=== PATIENT | male | born 1935 | race Caucasian/White ===

== ENCOUNTER 2017-09-04 07:57 | Emergency (ER) | payer MEDICARE, OTHER ==
[2017-09-04] MEDS ORDERED: Sodium Chloride 0.9% 10 ML Syringe FLUSH PRN (08:08)
--- NOTE | 2017-09-04 08:34 | EDM.PDOC ---
ED HPI GENERAL MEDICAL PROBLEM - General Chief Complaint: Chest Pain Stated Complaint: CHEST PAIN/L ARM PAIN Time Seen by Provider: 09/04/17 08:03 Source of Information: Reports: Patient History Limitations: Reports: No Limitations - History of Present Illness INITIAL COMMENTS - FREE TEXT/NARRATIVE: The patient presents with left arm and leg tingling and chest congestion. This started this morning. He went to work at around 5am and he 1st noticed some tingling in his left arm and then left leg. Then he developed some congestion in his chest. He has no numbness or weakness. He has no shortness of breath. He has no cough. He has no headache, abdominal pain, nausea or vomiting. The chest congestion is gone but he still has some tingling in his left arm and leg , but is much better. 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 Denies: Cough, Fever/Chills, Headaches, Nausea/Vomiting, Shortness of Breath - Related Data Allergies Allergy/AdvReac Type Severity Reaction Status Date / Time No Known Allergies Allergy Verified 09/04/17 08:01 Home Meds: Home Meds Ascorbic Acid [Vitamin C] 1,000 mg PO DAILY 03/25/14 [History] Aspirin [Halfprin] 81 mg PO DAILY 03/25/14 [History] Carvedilol 6.25 mg PO DAILY 03/25/14 [History] Diclofenac Sodium [Voltaren] 75 mg PO BIDM PRN 03/25/14 [History] Lactobacillus Acidophilus [Probiotic] 1 cap PO DAILY 03/25/14 [History] Omeprazole 40 mg PO DAILY 03/25/14 [History] Oxybutynin [Oxybutynin ER] 15 mg PO DAILY 03/25/14 [History] Simvastatin [Zocor] 20 mg PO BEDTIME 03/25/14 [History] Terazosin [Hytrin] 2 mg PO DAILY 03/25/14 [History] Past Medical History Cardiovascular History: Reports: AR, Pacemaker Respiratory History: Reports: PE - Past Surgical History Cardiovascular Surgical History: Reports: Coronary Artery Bypass, Pacer Social & Family History - Tobacco Use Smoking Status *Q: Never Smoker - Caffeine Use Caffeine Use: Reports: None - Recreational Drug Use Recreational Drug Use: No ED ROS GENERAL - Review of Systems Review Of Systems: See Below Constitutional: Reports: No Symptoms HEENT: Reports: No Symptoms Respiratory: Reports: No Symptoms Cardiovascular: Reports: Chest Pain (Congestion) Endocrine: Reports: No Symptoms GI/Abdominal: Reports: No Symptoms : Reports: No Symptoms Musculoskeletal: Reports: No Symptoms Skin: Reports: No Symptoms Neurological: Reports: Tingling (Left arm and leg). Denies: Numbness, Weakness ED EXAM, GENERAL - Physical Exam Exam: See Below Exam Limited By: No Limitations General Appearance: Alert, No Apparent Distress Ears: Normal External Exam Nose: Normal Inspection Head: Atraumatic, Normocephalic Neck: Normal Inspection Respiratory/Chest: No Respiratory Distress, Lungs Clear, Normal Breath Sounds Cardiovascular: Regular Rate, Rhythm, No Edema, No Murmur GI/Abdominal: Soft, Non-Tender, No Organomegaly, No Mass Back Exam: Normal Inspection Extremities: Normal Inspection Neurological: Alert, Oriented, No Motor/Sensory Deficits EKG INTERPRETATION EKG Date: 09/04/17 Time: 08:02 Rhythm: Other (atrial paced rhythm) Rate (Beats/Min): 68 [place]: Normal P-Wave: Present QRS: Normal ST-T: Normal QT: Normal DC/PQ Interval: 1st degree HB Course - Vital Signs Last Recorded V/S: Last Vital Signs Temp 98.1 F 09/04/17 08:01 Pulse 63 09/04/17 08:01 Resp 12 09/04/17 08:01 BP 157/102 H 09/04/17 08:01 Pulse Ox 97 09/04/17 08:01 - Orders/Labs/Meds Orders: Active Orders 24 hr Category Date Time Status Cardiac Monitoring [RC] . DIRECTED Care 09/04/17 08:08 Active EKG Documentation Completion [RC] STAT Care 09/04/17 08:09 Active Peripheral IV Care [RC] . DIRECTED Care 09/04/17 08:09 Active Sodium Chloride 0.9% [Saline Flush] Med 09/04/17 08:08 Active 10 ml FLUSH ASDIRECTED PRN Peripheral IV Insertion Adult [OM.PC] Stat Oth 09/04/17 08:08 Ordered Medication Orders Sodium Chloride (Saline Flush) 10 ml FLUSH ASDIRECTED PRN PRN Reason: Keep Vein Open Last Admin: 09/04/17 08:26 Dose: 10 ml Labs: Laboratory Tests 09/04/17 09/04/17 09/04/17 Range/Units 08:05 08:05 08:05 WBC 3.80 L (4.23-9.07) K/mm3 RBC 4.52 L (4.63-6.08) M/mm3 Hgb 14.3 (13.7-17.5) gm/L Hct 41.0 (40.1-51.0) % MCV 90.7 (79.0-92.2) fl MCH 31.6 (25.7-32.2) pg MCHC 34.9 (32.2-35.5) g/dl RDW Std Deviation 40.5 (35.1-43.9) fL Plt Count 114 L (163-337) K/mm3 MPV 9.5 (9.4-12.3) fl Neut % (Auto) 64.5 (34.0-67.9) % Lymph % (Auto) 19.7 L (21.8-53.1) % Stanley % (Auto) 10.5 (5.3-12.2) % Eos % (Auto) 4.7 (0.8-7.0) Baso % (Auto) 0.3 (0.1-1.2) % Neut # (Auto) 2.45 (1.78-5.38) K/mm3 Lymph # (Auto) 0.75 L (1.32-3.57) K/mm3 Stanley # (Auto) 0.40 (0.30-0.82) K/mm3 Eos # (Auto) 0.18 (0.04-0.54) K/mm3 Baso # (Auto) 0.01 (0.01-0.08) K/mm3 PT 11.2 (9.5-12.1) SECONDS INR 1.03 APTT 28 (24-31) SECONDS Sodium 139 (136-145) mEq/L Potassium 4.0 (3.5-5.1) mEq/L Chloride 105 (98-107) mEq/L Carbon Dioxide 26 (21-32) mEq/L Anion Gap 12.0 (5-15) BUN 20 H (7-18) mg/dL Creatinine 1.1 (0.7-1.3) mg/dL Est Cr Clr Drug Dosing 47.57 mL/min Estimated GFR (MDRD) > 60 (>60) mL/min BUN/Creatinine Ratio 18.2 H (14-18) Glucose 115 (83-115) mg/dL Calcium 9.2 (8.5-10.1) mg/dL Total Bilirubin 0.8 (0.2-1.0) mg/dL AST 19 (15-37) U/L ALT 19 (16-63) U/L Alkaline Phosphatase 78 (46-116) U/L Troponin I < 0.017 (0.00-0.056) ng/mL Total Protein 7.0 (6.4-8.2) g/dl Albumin 3.7 (3.4-5.0) g/dl Globulin 3.3 gm/dL Albumin/Globulin Ratio 1.1 (1-2) Meds: Medications Generic Name Dose Route Start Last Admin Trade Name Freq PRN Reason Stop Dose Admin Sodium Chloride 10 ml 09/04/17 08:08 09/04/17 08:26 Saline Flush FLUSH 10 ml ASDIRECTED PRN Administration Keep Vein Open - Re-Assessments/Exams Free Text/Narrative Re-Assessment/Exam: 09/04/17 08:34 A stroke alert was called. I ordered an IV saline lock, EKG, CT of his head and labs. 09/04/17 09:53 His EKG shows a paced rhythm. His CT shows nothing acute. His CBC and CMP look good. His troponin is negative. He feels better. I feel he had a TIA. I have scheduled a US of his carotids for . He is seeing the progress clerk that day and he has an echo scheduled that day also. I offered to admit him to the hospital but he wanted to go home. Departure - Departure Time of Disposition: 09:55 Disposition: Home, Self-Care 01 Condition: Good Clinical Impression: TIA (transient ischemic attack) Qualifiers: Transient cerebral ischemia type: unspecified Qualified Code(s): G45.9 - Transient cerebral ischemic attack, unspecified Referrals: Lindsey Monique SECTION HAND HELPER [Primary Care Provider] - 1 Week Forms: ED Department Discharge Additional Instructions: Please come to [place] at 9am on . I have scheduled an ultrasound of your carotid arteries in your neck before the echo of your heart. Follow up with Lindsey Monique within a week. Continue taking the aspirin daily. Please return if you are worse. - My Orders Last 24 Hours: My Active Orders 09/04/17 08:08 Cardiac Monitoring [RC] . DIRECTED Sodium Chloride 0.9% [Saline Flush] 10 ml FLUSH ASDIRECTED PRN Peripheral IV Insertion Adult [OM.PC] Stat 09/04/17 08:09 EKG Documentation Completion [RC] STAT Peripheral IV Care [RC] . DIRECTED - Assessment/Plan Last 24 Hours: My Active Orders 09/04/17 08:08 Cardiac Monitoring [RC] . DIRECTED Sodium Chloride 0.9% [Saline Flush] 10 ml FLUSH ASDIRECTED PRN Peripheral IV Insertion Adult [OM.PC] Stat 09/04/17 08:09 EKG Documentation Completion [RC] STAT Peripheral IV Care [RC] . DIRECTED
--- NOTE | 2017-09-04 08:39 | CT ---
Head CT Technique: Multiple axial sections through the brain were obtained. Intravenous contrast was not utilized. Comparison: No previous intracranial imaging. Findings: Ventricles along with basal cisterns and sulci over convexities are mildly prominent. Very minimal diminished density is noted within portions of the periventricular white matter compatible with small vessel ischemic demyelination change. Symmetric low density findings are seen within the posterior basal ganglia on both sides which most likely represent incidental prominent perivascular spaces. 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 Atherosclerotic change is noted within the carotid siphon. No evidence of intracranial hemorrhage. No midline shift or mass effect is seen. Bone window settings were reviewed which shows no acute calvarial abnormality. Visualized sinuses shows mild mucosal thickening within the right ethmoid sinus. Impression: 1. Mild senescent change. 2. Minimal sinus findings which are felt to be incidental. 3. No acute intracranial is abnormality is identified. Diagnostic code #2
[2017-09-04 10:13] VITALS: BP 160/105
== END 2017-09-04 10:10 | disposition home or self-care (01) ==
LOC: JD.ED 07:57
DX: G45.9 Transient cerebral ischemic attack, unspecified (principal); I25.2 Old myocardial infarction; I25.810 Atherosclerosis of coronary artery bypass graft(s) without angina pectoris; Z79.82 Long term (current) use of aspirin; Z95.0 Presence of cardiac pacemaker; Z79.899 Other long term (current) drug therapy; Z95.1 Presence of aortocoronary bypass graft
CPT/HCPCS: 36415; 70450; 80053; 84484; 85025; 85610; 85730; 93005; 99285; J7050

== ENCOUNTER 2020-11-05 08:59 | Emergency (ER) | payer MEDICARE, OTHER ==
[2020-11-05 09:07] VITALS: BP 167/93; PULSE 66
[2020-11-05] MEDS ORDERED: Sodium Chloride 0.9% 10 ML Syringe FLUSH PRN (09:21)
[2020-11-05] MEDS ORDERED: Aspirin 81 MG Tab.Chew PO ONE (09:21)
--- NOTE | 2020-11-05 10:01 | CR ---
Chest: Portable view of the chest was obtained. Comparison: No prior chest imaging, prior chest CT study of 05/29/24. Tortuous thoracic aorta is seen. Heart size is felt to be mildly enlarged. Bichamber pacemaker is noted. Sternotomy is noted for prior CABG. Lungs are clear with no acute parenchymal change. No definite acute osseous finding is seen. Impression: 1. Findings as described above which are felt to be old. 2. Nothing acute is seen. Diagnostic code #2
--- NOTE | 2020-11-05 11:46 | EDM.PDOC ---
ED HPI GENERAL MEDICAL PROBLEM - General Chief Complaint: Chest Pain Stated Complaint: CHEST PAIN Time Seen by Provider: 11/05/20 09:05 Source of Information: Reports: Patient, Family History Limitations: Reports: No Limitations - History of Present Illness INITIAL COMMENTS - FREE TEXT/NARRATIVE: The patient presents with left sided chest pain. The pain goes down his left arm. He said he noticed this pain yesterday. When he lifts something he feels more pain. Walking does not make it worse. He has no shortness of breath. He has no fever, chills, cough, abdominal pain, nausea or vomiting. He does have a history of heart disease. Onset: Gradual Duration: Day(s): (yesterday) Location: Reports: Chest Quality: Reports: Sharp Severity: Mild Improves with: Reports: None Worsens with: Reports: None Associated Symptoms: Reports: Chest Pain. Denies: Cough, Fever/Chills, Headaches, Nausea/Vomiting, Shortness of Breath Chest Pain Score (Numeric/FACES): 5 - Related Data Allergies Allergy/AdvReac Type Severity Reaction Status Date / Time No Known Allergies Allergy Verified 11/23/18 02:44 Home Meds: Home Meds Ascorbic Acid [Vitamin C] 1,000 mg PO DAILY 03/25/14 [History] Aspirin [Halfprin] 81 mg PO DAILY 03/25/14 [History] Lactobacillus Acidophilus [Probiotic] 1 cap PO DAILY 03/25/14 [History] Omeprazole 20 mg PO DAILY 03/25/14 [History] Simvastatin [Zocor] 20 mg PO BEDTIME 03/25/14 [History] Terazosin [Hytrin] 2 mg PO DAILY 03/25/14 [History] carvediloL [Carvedilol] 6.25 mg PO DAILY 03/25/14 [History] Past Medical History HEENT History: Reports: Impaired Vision Cardiovascular History: Reports: High Cholesterol, NH, Pacemaker Respiratory History: Reports: PE Gastrointestinal History: Reports: GERD - Infectious Disease History Infectious Disease History: Reports: Chicken Pox, Measles, Mumps - Past Surgical History HEENT Surgical History: Reports: Oral Surgery Cardiovascular Surgical History: Reports: Coronary Artery Bypass, Pacer Social & Family History - Family History Family Medical History: No Pertinent Family History - Tobacco Use Tobacco Use Status *Q: Former Tobacco User Used Tobacco, but Quit: Yes Month/Year Tobacco Last Used: 40 yrs - Caffeine Use Caffeine Use: Reports: Coffee ED ROS GENERAL - Review of Systems Review Of Systems: See Below Constitutional: Reports: No Symptoms HEENT: Reports: No Symptoms Respiratory: Reports: No Symptoms Cardiovascular: Reports: Chest Pain Endocrine: Reports: No Symptoms GI/Abdominal: Reports: No Symptoms : Reports: No Symptoms Musculoskeletal: Reports: No Symptoms ED EXAM, GENERAL - Physical Exam Exam: See Below Exam Limited By: No Limitations General Appearance: Alert, No Apparent Distress Ears: Normal External Exam Nose: Normal Inspection Head: Atraumatic, Normocephalic Neck: Normal Inspection Respiratory/Chest: No Respiratory Distress, Lungs Clear, Normal Breath Sounds Cardiovascular: Regular Rate, Rhythm, No Edema, No Murmur GI/Abdominal: Soft, Non-Tender, No Organomegaly, No Mass Back Exam: Normal Inspection Extremities: Normal Inspection #1 Interpretation EKG Date: 11/05/20 Time: 09:05 Rhythm: Other (atrial paced rhtym) Rate (Beats/Min): 64 [place]: LAD-Left [place] Deviation P-Wave: Present QRS: Normal ST-T: Normal QT: Normal Course - Vital Signs Last Recorded V/S: Last Vital Signs Temp 97.8 F 11/05/20 09:05 Pulse 66 11/05/20 09:05 Resp 18 11/05/20 09:05 BP 167/93 H 11/05/20 09:05 Pulse Ox 95 11/05/20 09:05 - Orders/Labs/Meds Orders: Active Orders 24 hr Category Date Time Status Cardiac Monitoring [RC] . DIRECTED Care 11/05/20 09:22 Active EKG Documentation Completion [RC] STAT Care 11/05/20 09:22 Active Peripheral IV Care [RC] . DIRECTED Care 11/05/20 09:22 Active Sodium Chloride 0.9% [Saline Flush] Med 11/05/20 09:21 Active 10 ml FLUSH ASDIRECTED PRN Peripheral IV Insertion Adult [OM.PC] Stat Oth 11/05/20 09:21 Ordered Medication Orders Sodium Chloride (Sodium Chloride 0.9% 10 Ml Syringe) 10 ml FLUSH ASDIRECTED PRN PRN Reason: Keep Vein Open Labs: Laboratory Tests 11/05/20 11/05/20 Range/Units 09:32 09:32 WBC 3.74 L (4.23-9.07) K/mm3 RBC 4.47 L (4.63-6.08) M/mm3 Hgb 13.5 L (13.7-17.5) gm/dl Hct 40.3 (40.1-51.0) % MCV 90.2 (79.0-92.2) fl MCH 30.2 (25.7-32.2) pg MCHC 33.5 (32.2-35.5) g/dl RDW Std Deviation 44.4 H (35.1-43.9) fL Plt Count 120 L (163-337) K/mm3 MPV 9.0 L (9.4-12.3) fl Neut % (Auto) 67.6 (34.0-67.9) % Lymph % (Auto) 19.3 L (21.8-53.1) % Rogers % (Auto) 8.3 (5.3-12.2) % Eos % (Auto) 4.5 (0.8-7.0) Baso % (Auto) 0.3 (0.1-1.2) % Neut # (Auto) 2.53 (1.78-5.38) K/mm3 Lymph # (Auto) 0.72 L (1.32-3.57) K/mm3 Rogers # (Auto) 0.31 (0.30-0.82) K/mm3 Eos # (Auto) 0.17 (0.04-0.54) K/mm3 Baso # (Auto) 0.01 (0.01-0.08) K/mm3 Sodium 143 (136-145) mEq/L Potassium 4.5 (3.5-5.1) mEq/L Chloride 108 H (98-107) mEq/L Carbon Dioxide 26 (21-32) mEq/L Anion Gap 13.5 (5-15) BUN 26 H (7-18) mg/dL Creatinine 1.1 (0.7-1.3) mg/dL Est Cr Clr Drug Dosing 48.20 mL/min Estimated GFR (MDRD) > 60 (>60) mL/min BUN/Creatinine Ratio 23.6 H (14-18) Glucose 155 H (70-99) mg/dL Calcium 8.9 (8.5-10.1) mg/dL Total Bilirubin 0.8 (0.2-1.0) mg/dL AST 18 (15-37) U/L ALT 29 (16-63) U/L Alkaline Phosphatase 85 (46-116) U/L Troponin I < 0.017 (0.00-0.056) ng/mL Total Protein 7.4 (6.4-8.2) g/dl Albumin 3.7 (3.4-5.0) g/dl Globulin 3.7 gm/dL Albumin/Globulin Ratio 1.0 (1-2) Meds: Medications Generic Name Dose Route Start Last Admin Trade Name Freq PRN Reason Stop Dose Admin Sodium Chloride 10 ml 11/05/20 09:21 Sodium Chloride 0.9% 10 Ml Syringe FLUSH ASDIRECTED PRN Keep Vein Open Discontinued Medications Generic Name Dose Route Start Last Admin Trade Name Freq PRN Reason Stop Dose Admin Aspirin 324 mg 11/05/20 09:21 11/05/20 09:46 Aspirin 81 Mg Tab.Chew PO 11/05/20 09:22 324 mg ONETIME ONE Administration - Re-Assessments/Exams Free Text/Narrative Re-Assessment/Exam: 11/05/20 11:45 I ordered an IV saline lock, EKG, CXR, labs and aspirin. His EKG shows an atrial paced rhythm. His CXR looks good. His WBC is a little low at 3.74. His RBCs are low at 4.47. His glucose is 135. His troponin is negative. It appears there is no NH. I will discharge him home. Departure - Departure Time of Disposition: 11:50 Disposition: Home, Self-Care 01 Condition: Good Clinical Impression: Atypical chest pain Referrals: Lindsey Monique HOUSE CARPENTER [Primary Care Provider] - 1 Week Additional Instructions: Take your medications as prescribed. Follow up with Lindsey within a week. Please return if you are worse. Sepsis Event Note (ED) - Evaluation Sepsis Screening Result: No Definite Risk - Focused Exam Vital Signs: Vital Signs Temp Pulse Resp BP Pulse Ox 11/05/20 09:05 97.8 F 66 18 167/93 H 95 - My Orders Last 24 Hours: My Active Orders 11/05/20 09:21 Sodium Chloride 0.9% [Saline Flush] 10 ml FLUSH ASDIRECTED PRN Peripheral IV Insertion Adult [OM.PC] Stat 11/05/20 09:22 Cardiac Monitoring [RC] . DIRECTED EKG Documentation Completion [RC] STAT Peripheral IV Care [RC] . DIRECTED - Assessment/Plan Last 24 Hours: My Active Orders 11/05/20 09:21 Sodium Chloride 0.9% [Saline Flush] 10 ml FLUSH ASDIRECTED PRN Peripheral IV Insertion Adult [OM.PC] Stat 11/05/20 09:22 Cardiac Monitoring [RC] . DIRECTED EKG Documentation Completion [RC] STAT Peripheral IV Care [RC] . DIRECTED
== END 2020-11-05 11:56 | disposition home or self-care (01) ==
LOC: JD.ED 08:59
DX: R07.89 Other chest pain (principal); E78.00 Pure hypercholesterolemia, unspecified; I25.2 Old myocardial infarction; K21.9 Gastro-esophageal reflux disease without esophagitis; Z95.0 Presence of cardiac pacemaker; Z79.82 Long term (current) use of aspirin; Z79.899 Other long term (current) drug therapy; Z95.1 Presence of aortocoronary bypass graft; Z87.891 Personal history of nicotine dependence
CPT/HCPCS: 36415; 71045; 80053; 84484; 85025; 93005; 99285; A9270; 93010; 99284

== ENCOUNTER 2020-11-09 02:17 | Emergency (ER) | payer MEDICARE, OTHER ==
[2020-11-09 02:28] VITALS: BP 168/105
--- NOTE | 2020-11-09 03:01 | EDM.PDOC ---
ED HPI GENERAL MEDICAL PROBLEM - General Chief Complaint: Chest Pain Stated Complaint: CHEST PAIN Time Seen by Provider: 11/09/20 02:31 Source of Information: Reports: Patient, Family (Son), Old Records (ED visit 11/05/2020) History Limitations: Reports: No Limitations - History of Present Illness INITIAL COMMENTS - FREE TEXT/NARRATIVE: Mr. Low is a very pleasant 85-year-old gentleman who, medical records indicate, was seen this past 11/05/2020, with a complaint at that time of left sided chest pain that radiated down his left arm that had begun the day before, , 11/04/2020. His symptoms were made worse if he lifted something, but walking did not make his symptoms worse. No associated dyspnea, fever, chills, cough, abdominal pain, nausea, or vomiting. His initial BP was found to be moderately elevated at 167/93, otherwise, he was hemodynamically stable, afebrile, saturating 95% on room air. His physical exam was unremarkable. Work-up included a CBC, CMP, troponin, chest x-ray, and an ECG, all of which were unremarkable with the exception of his ECG, which demonstrated an atrial paced rhythm at 64 bpm and left axis deviation, but was otherwise unremarkable. The patient was discharged home with the recommendation that he continue to take his usual prescribed medications and follow-up with his PCP within a week. The patient now returns to the ED stating that his left-sided chest pain and left upper extremity pain has continued to come and go, and has gotten worse since yesterday. He is unable to sleep because of the pain. He states that the pain is felt in his left anterior chest and left scapular area, as well as down his entire left upper extremity, although he has also experienced tingling and numbness to his entire left upper extremity. He states that his pain is made worse if he is supine or if he bends down to pick something up. Changing or switching positions seems to help with the symptoms. He states that on the way to the ED this morning, his symptoms nearly resolved, but then walking into the ED, he felt bad again. He has been applying Lidoderm patches to his back and chest, which has not helped. He has been taking Tylenol every 6 hours, which has also not helped. He denies associated dyspnea or palpitations. He states that his current symptoms are distinctly different from when he suffered an [place] in 2003. Here in the ED, the patient's initial BP is found to be modestly elevated at 168/105, otherwise, he is hemodynamically stable, afebrile, saturating 96% on room air. He appears to be comfortable, in no acute distress. Prior to 11/04/2020, the patient denies having a recent fever, chills, sore throat, ear pain, nasal or sinus congestion, cough, dyspnea, chest pain, palpitations, nausea, vomiting, constipation, diarrhea, abdominal pain, urinary symptoms, recent weight gain or weight loss, recent bloody bowel movements or black bowel movements, recent joint aches, headaches, or rashes. The patient's PCP is Lindsey Monique NP. His Qa Manager is Dr. Lola Diaz. Left Chest Pain Score (Numeric/FACES): 8 - Related Data Allergies Allergy/AdvReac Type Severity Reaction Status Date / Time No Known Allergies Allergy Verified 11/09/20 02:28 Home Meds: Home Meds Ascorbic Acid [Vitamin C] 1,000 mg PO DAILY 03/25/14 [History] Aspirin [Halfprin] 81 mg PO DAILY 03/25/14 [History] Lactobacillus Acidophilus [Probiotic] 1 cap PO DAILY 03/25/14 [History] Omeprazole 20 mg PO DAILY 03/25/14 [History] Simvastatin [Zocor] 20 mg PO BEDTIME 03/25/14 [History] Terazosin [Hytrin] 2 mg PO DAILY 03/25/14 [History] carvediloL [Carvedilol] 6.25 mg PO DAILY 03/25/14 [History] Orphenadrine [Norflex] 1 tab PO Q12H PRN #14 tab.er 11/09/20 [Rx] Past Medical History HEENT History: Reports: Impaired Vision (wears glasses) Cardiovascular History: Reports: CAD, High Cholesterol, [place] (x , 2003) Respiratory History: Reports: PE (2016, on Xarelto x 3 or 4 months) Gastrointestinal History: Reports: GERD, Hiatal Hernia Genitourinary History: Reports: BPH - Infectious Disease History Infectious Disease History: Reports: Chicken Pox, Measles, Mumps - Past Surgical History HEENT Surgical History: Reports: Oral Surgery (dental extractions) Cardiovascular Surgical History: Reports: Coronary Artery Bypass (x 4 vessel, 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), Pacer (x 3) Social & Family History - Tobacco Use Tobacco Use Status *Q: Former Tobacco User Tobacco Use Within Last Twelve Months: Smokeless Tobacco (Used to chew tobacco) Years of Tobacco use: 20 Packs/Tins Daily: 0.5 Month/Year Tobacco Last Used: Quit 1970s Tobacco Use Comment: Started smoking 1950 - Caffeine Use Caffeine Use: Reports: Coffee - Alcohol Use Alcohol Use History: Yes Date/Time of Last Drink Comment: None since 2018 - Recreational Drug Use Recreational Drug Use: No - Living Situation & Occupation Living situation: Reports: , with Spouse 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 ED EXAM, GENERAL - Physical Exam Exam: See Below Exam Limited By: No Limitations General Appearance: Alert, WD/WN, No Apparent Distress Eye Exam: Bilateral Eye: EOMI, Normal Inspection Ears: Normal External Exam, Hearing Grossly Normal Nose: Normal Inspection Throat/Mouth: Normal Inspection, Normal Lips, Normal Voice, No Airway Compromise Head: Atraumatic, Normocephalic Neck: Normal Inspection, Supple, Non-Tender, Full Range of Motion, Other (Left s capula pain increased with neck extension, otherwise, left chest, left scapula, and left upper extremity pain not modified with neck compression, turning the head fully to the left or right, or tipping the chin to the chest) Respiratory/Chest: No Respiratory Distress, Lungs Clear, Normal Breath Sounds, No Accessory Muscle Use, Other (Reproducible tenderness to palpation of the third intercostal space, just left of the midclavicular line. Nontender to the remainder of the left pectoralis muscle. Pain not induced with flexing the pectoralis muscle.). No: Decreased Breath Sounds, Crackles, Rhonchi, Wheezing, Stridor, Prolonged Expiration Cardiovascular: Normal Peripheral Pulses, Regular Rate, Rhythm, No Edema, No Gallop, No JVD, No Murmur, No Rub Peripheral Pulses: 3+: Radial (L), Radial (R) GI/Abdominal: Normal Bowel Sounds, Soft, Non-Tender, No Organomegaly, No Distention, No Abnormal Bruit, No Mass Back Exam: Normal Inspection, Full Range of Motion, Other (Reproducible tenderness to palpation of the left parascapular musculature) Extremities: Normal Inspection, Normal Range of Motion, Non-Tender (including the entire LUE), No Pedal Edema, Normal Capillary Refill Neurological: Alert, Oriented, Normal Cognition, No Motor/Sensory Deficits Psychiatric: Normal Affect Skin Exam: Warm, Dry, Intact, Normal Color, No Rash #1 Interpretation EKG Date: 11/09/20 Time: 02:24 Rhythm: Other (Atrial-paced w/ 1st degree AVB) Rate (Beats/Min): 67 Castile: LAD-Left Castile Deviation QRS: Other (Late transition) ST-T: Normal QT: Prolonged (QTc 480 ms) Comparison: Other: (Unable to view prior ECG's due to computer malfuction) Course - Vital Signs Last Recorded V/S: Last Vital Signs Temp 36.9 C 11/09/20 02:25 Pulse 60 11/09/20 06:00 Resp 18 11/09/20 06:00 BP 168/105 H 11/09/20 02:25 Pulse Ox 96 11/09/20 06:00 - Orders/Labs/Meds Orders: Active Orders 24 hr Category Date Time Status EKG 12 Lead [EK] Stat Ther 11/09/20 02:31 Ordered Labs: Laboratory Tests 11/09/20 11/09/20 11/09/20 Range/Units 02:30 02:34 02:34 WBC 4.52 (4.23-9.07) K/mm3 RBC 4.38 L (4.63-6.08) M/mm3 Hgb 13.5 L (13.7-17.5) gm/dl Hct 39.4 L (40.1-51.0) % MCV 90.0 (79.0-92.2) fl MCH 30.8 (25.7-32.2) pg MCHC 34.3 (32.2-35.5) g/dl RDW Std Deviation 44.7 H (35.1-43.9) fL Plt Count 126 L (163-337) K/mm3 MPV 9.2 L (9.4-12.3) fl Neut % (Auto) 67.5 (34.0-67.9) % Lymph % (Auto) 19.5 L (21.8-53.1) % [place] % (Auto) 9.5 (5.3-12.2) % Eos % (Auto) 3.1 (0.8-7.0) Baso % (Auto) 0.2 (0.1-1.2) % Neut # (Auto) 3.05 (1.78-5.38) K/mm3 Lymph # (Auto) 0.88 L (1.32-3.57) K/mm3 [place] # (Auto) 0.43 (0.30-0.82) K/mm3 Eos # (Auto) 0.14 (0.04-0.54) K/mm3 Baso # (Auto) 0.01 (0.01-0.08) K/mm3 D-Dimer, Quantitative 3.29 H (0.19-0.50) mg/L Sodium 139 (136-145) mEq/L Potassium 4.2 (3.5-5.1) mEq/L Chloride 103 (98-107) mEq/L Carbon Dioxide 28 (21-32) mEq/L Anion Gap 12.2 (5-15) BUN 22 H (7-18) mg/dL Creatinine 1.2 (0.7-1.3) mg/dL Est Cr Clr Drug Dosing 44.19 mL/min Estimated GFR (MDRD) 57 (>60) mL/min BUN/Creatinine Ratio 18.3 H (14-18) Glucose 123 H (70-99) mg/dL Calcium 8.9 (8.5-10.1) mg/dL Total Bilirubin 0.7 (0.2-1.0) mg/dL AST 12 L (15-37) U/L ALT 28 (16-63) U/L Alkaline Phosphatase 94 (46-116) U/L Troponin I < 0.017 (0.00-0.056) ng/mL Total Protein 7.4 (6.4-8.2) g/dl Albumin 3.9 (3.4-5.0) g/dl Globulin 3.5 gm/dL Albumin/Globulin Ratio 1.1 (1-2) Meds: Medications Discontinued Medications Generic Name Dose Route Start Last Admin Trade Name Freq PRN Reason Stop Dose Admin Sodium Chloride 1,000 mls @ 150 mls/hr 11/09/20 03:15 Normal Saline IV ASDIRECTED [facility] Ibuprofen 600 mg 11/09/20 06:11 11/09/20 06:16 Ibuprofen 600 Mg Tab PO 11/09/20 06:12 600 mg ONETIME ONE Administration Orphenadrine Citrate 100 mg 11/09/20 06:11 11/09/20 06:16 Orphenadrine 100 Mg Tab.Er PO 11/09/20 06:12 100 mg ONETIME STA Administration - Re-Assessments/Exams Free Text/Narrative Re-Assessment/Exam: 11/09/20 02:56 As above, the patient developed left anterior chest and left scapular area pain, with radiation of the pain down his entire left upper extremity, on 11/04/2020. He was seen in this ED on 11/05/2020, where a work-up was unremarkable. He was advised to follow-up with his PCP within a week. He now returns the ED stating that he has not followed up with his PCP, but that his pain has persisted, particularly if he is supine or bends down to pick something up. Changing posi tions helps with his symptoms. On physical exam, his anterior chest pain is reproducible with direct palpation of a particular area of his left chest, but not with flexing of his left pectoralis muscle. His left scapular pain is also reproducible with palpation of the parascapular musculature. His left upper extremity is not tender at all. An ECG, obtained at triage, demonstrates an atrial paced rhythm with no ischemic changes. A CBC, CMP, troponin, and portable chest x-ray were also ordered at triage. I have added a D-dimer. 11/09/20 03:15 Portable chest radiograph reviewed. The cardiac silhouette is at the upper limits of normal. No pulmonary vascular congestion. No pleural effusions seen on this AP view. No focal infiltrate. No pneumothorax. Sternotomy wires noted. A right-sided dual-chamber pacer is noted. Formal read per the Radiologist pending. The patient's CBC is remarkable for a H/H slightly depressed at 13.5/39.4, and mild thrombocytopenia of 126, with the remainder of his CBC being unremarkable. His CMP is remarkable for a BUN slightly elevated 22 with a Cr within normal limits at 1.2, and mild hyperglycemia of 123, with the remainder of his CMP being unremarkable. His troponin is undetectably low. His D-dimer is significantly elevated at 3.29. Based on the above, I have ordered a CT angiogram of the chest to evaluate for a PE, along with some IV fluid. 11/09/20 05:52 CT angiogram of the chest is read by [facility] as: 1. Negative for pulmonary embolus. 2. Ectasia of the thoracic aorta. Cannot assess for dissection given phase of contrast enhancement. 3. Post median sternotomy and CABG. 11/09/20 06:11 Test results discussed with the patient and his son. I suspect that the patient is suffering from left cervical radiculopathy causing muscle spasm. For today's purposes, the patient will be treated with Norflex and ibuprofen, and I will submit a prescription for Norflex to the pharmacy of his choice. He has an appointment to follow-up with his PCP, Lindsey Monique NP, tomorrow afternoon. I would like him to have an MRI, but he has a pacemaker, and is therefore not likely a candidate unless his pacemaker is MRI-safe, which is possible - this is the patient's 3rd pacemaker. If it is not possible, then perhaps they can discuss referral to an Orthopedic Surgeon or Neurosurgeon. Departure - Departure Time of Disposition: 06:14 Disposition: Home, Self-Care 01 Condition: Good Clinical Impression: Left cervical radiculopathy - Discharge Information *PRESCRIPTION DRUG MONITORING PROGRAM REVIEWED*: Not Applicable *COPY OF PRESCRIPTION DRUG MONITORING REPORT IN PATIENT [place]: Not Applicable Prescriptions: Orphenadrine [Norflex] 1 tab PO Q12H PRN #14 tab.er PRN Reason: Muscle Spasm - Painful Instructions: Cervical Radiculopathy, [id number] Referrals: Lindsey Monique NP [Primary Care Provider] - Lola Diaz MD [Ordering Only Provider] - Forms: ED Department Discharge Additional Instructions: You were seen in the emergency room for left chest pain, left shoulder blade area pain, and pain versus tingling/numbness down your entire left arm. Work-up in the ER included several blood tests, a portable chest x-ray, a CT angiogram of your chest, and an ECG. Your entire work-up was unremarkable. You have not suffered a heart attack. You do not have a blood clot in your lungs. You do not have pneumonia or a collapsed lung. Based on your history, physical exam, and ER tests, you are most likely suffering from left cervical radiculopathy = irritation of nerves leaving the left side of your neck and going into your chest, shoulder blade area, and left arm. You have been started on the muscle relaxant Norflex, and a prescription for Norflex has been sent to the [facility], located at [address] [place] [address]. Take 1 tablet of Norflex every 12 hours, starting this evening, 11/09/2020, as prescribed. Norflex works well with ibuprofen. Take 2 to 3 tablets (400-600 mg) of [id number] ibuprofen up to every 8 hours, as needed for discomfort. Follow-up with your PCP, Lindsey Monique NP, at your previously scheduled appointment this coming 11/10/2020. At that time, you can discuss the possibility of undergoing an MRI of your neck, which may be possible if your pacemaker is MRI-safe. If you are not a candidate for an MRI, Ms. Monique may wish to refer you to a neck specialist. If any other problems, please do not hesitate to return to the ER. Sepsis Event Note (ED) - Evaluation Sepsis Screening Result: No Definite Risk - My Orders Last 24 Hours: My Active Orders 11/09/20 02:31 EKG 12 Lead [EK] Stat - Assessment/Plan Last 24 Hours: My Active Orders 11/09/20 02:31 EKG 12 Lead [EK] Stat
[2020-11-09] MEDS ORDERED: Sodium Chloride 0.9% 1,000 ML IV SCH (03:15)
[2020-11-09] MEDS ORDERED: Ibuprofen 600 MG Tab PO ONE (06:11)
[2020-11-09] MEDS ORDERED: Orphenadrine 100 MG Tab.ER PO STA (06:11)
[2020-11-09 06:40] VITALS: PULSE 60
--- NOTE | 2020-11-09 07:52 | CR ---
Chest: Frontal view of the chest is obtained. Comparison: Prior chest x-ray 11/05/20. Heart is slightly prominent. Tortuous thoracic aorta is seen. Prior sternotomy is noted. Bichamber pacemaker is seen. Slight atelectasis is seen within the left lung base. Lungs otherwise are clear. Bony structures show nothing acute. Impression: 1. Slight left basilar atelectasis. 2. Other stable findings as noted above. Diagnostic code #2
--- NOTE | 2020-11-09 08:08 | CT ---
CT chest Technique: Multiple axial sections through the chest were obtained. Intravenous contrast was not utilized. Study has been performed as a pulmonary angiogram protocol. Comparison: Prior chest x-ray of 11/05/20, prior chest CT performed as an angiogram protocol dated 05/29/14. Findings: Pulmonary arteries are well opacified. No filling defects are seen to indicate pulmonary embolism. Heart is enlarged. No pericardial thickening is seen. Diffuse atherosclerotic change is seen within the coronary arteries. There appears to be a prior CABG. Small hiatal hernia is noted. Visualized upper abdominal structures show no discrete abnormality. Thoracic aorta shows atherosclerotic change without aneurysm. Mediastinum shows no adenopathy. No axillary adenopathy is appreciated. Lung window settings were reviewed. No acute parenchymal abnormality is seen. No pleural effusions are seen. Bone window settings were reviewed which show mild scattered degenerative change within the spine. No acute osseous abnormality is appreciated. Impression: 1. No findings of pulmonary embolism. 2. No acute parenchymal process is seen within either lung. 3. Prior CABG and sternotomy. Diagnostic code #2 I agree with preliminary report from [facility], finalized on 11/09/20, 6:42 AM CDT, code 1
== END 2020-11-09 06:32 | disposition home or self-care (01) ==
LOC: JD.ED 02:17
DX: M54.12 Radiculopathy, cervical region (principal); R79.89 Other specified abnormal findings of blood chemistry; I25.10 Atherosclerotic heart disease of native coronary artery without angina pectoris; E78.00 Pure hypercholesterolemia, unspecified; I25.2 Old myocardial infarction; Z87.891 Personal history of nicotine dependence; Z79.899 Other long term (current) drug therapy
CPT/HCPCS: 36415; 71045; 71275; 80053; 84484; 85025; 85379; 93005; 99285; A9270; 93010; 99284

== ENCOUNTER 2021-07-11 15:59 | Emergency (ER) | payer MEDICARE, OTHER ==
[2021-07-11 16:18] VITALS: BP 152/84; PULSE 68
[2021-07-11] MEDS ORDERED: Factor IX Complex Human 500 UNIT VIAL IV ONE ×2 (19:13→19:35)
== END 2021-07-11 20:00 ==
LOC: JD.ED 15:59
DX: S06.6X0A Traumatic subarachnoid hemorrhage without loss of consciousness, initial encounter (principal); S06.5X0A Traumatic subdural hemorrhage without loss of consciousness, initial encounter; I25.10 Atherosclerotic heart disease of native coronary artery without angina pectoris; E78.00 Pure hypercholesterolemia, unspecified; I25.2 Old myocardial infarction; K21.9 Gastro-esophageal reflux disease without esophagitis; N40.0 Benign prostatic hyperplasia without lower urinary tract symptoms; Z79.82 Long term (current) use of aspirin; Z79.899 Other long term (current) drug therapy; Z79.01 Long term (current) use of anticoagulants; W18.09XA Striking against other object with subsequent fall, initial encounter
CPT/HCPCS: 36415; 70450; 72125; 80053; 85025; 85610; 96365; 99285; J7168

== ENCOUNTER 2021-09-13 10:30 | Emergency (ER) | payer MEDICARE, OTHER ==
[2021-09-13 10:59] VITALS: BP 150/99; PULSE 82
[2021-09-13] MEDS ORDERED: Metoclopramide 10 MG/2 ML SDV IVPUSH ONE (11:42)
[2021-09-13] MEDS ORDERED: LORazepam 2 MG/ML SDV IV ONE (11:42)
[2021-09-13] MEDS ORDERED: Meclizine 12.5 MG Tab PO ONE (11:43)
[2021-09-13] MEDS ORDERED: Dextrose 5%-0.9% NaCl 1,000 ML IV SCH (11:45)
== END 2021-09-13 14:14 | disposition home or self-care (01) ==
LOC: JD.ED 10:30
DX: H81.13 Benign paroxysmal vertigo, bilateral (principal); I25.10 Atherosclerotic heart disease of native coronary artery without angina pectoris; I25.2 Old myocardial infarction; E78.00 Pure hypercholesterolemia, unspecified; K21.9 Gastro-esophageal reflux disease without esophagitis; Z86.16 Personal history of COVID-19; Z79.899 Other long term (current) drug therapy; Z79.82 Long term (current) use of aspirin
CPT/HCPCS: 36415; 70450; 80053; 83735; 83880; 84443; 85025; 86140; 96374; 99284; A9270; J2060; J2765; J7042

== ENCOUNTER 2021-12-08 09:32 | Emergency (ER) | payer MEDICARE, OTHER ==
[2021-12-08 09:50] VITALS: BP 142/91; PULSE 69
== END 2021-12-08 12:15 | disposition home or self-care (01) ==
LOC: JD.ED 09:32
DX: S22.41XA Multiple fractures of ribs, right side, initial encounter for closed fracture (principal); I71.4 Abdominal aortic aneurysm, without rupture; I25.10 Atherosclerotic heart disease of native coronary artery without angina pectoris; I10 Essential (primary) hypertension; I25.2 Old myocardial infarction; Z86.16 Personal history of COVID-19; Z79.899 Other long term (current) drug therapy; Z79.82 Long term (current) use of aspirin; W01.0XXA Fall on same level from slipping, tripping and stumbling without subsequent striking against object, initial encounter
CPT/HCPCS: 71250; 71250-26; 99283; 99284

== ENCOUNTER 2024-02-10 01:10 | Emergency (ER) | payer MEDICARE, OTHER ==
[2024-02-10] MEDS ORDERED: Sodium Chloride 0.9% 10 ML Syringe FLUSH PRN (01:24)
[2024-02-10 01:57] LABS: BASOPHILS PERCENT AUTO 0.3 % (0.0-1.0); EOSINOPHILS ABSOLUTE AUTO 0.1 K/mm3 (0.0-0.4); EOSINOPHILS PERCENT AUTO 3.2 % (0.0-6.0); HEMATOCRIT 33.1 % (42.0-52.0); HEMOGLOBIN 11.4 gm/dl (14.0-18.0); LYMPHOCYTES ABSOLUTE AUTO 0.9 K/mm3 (1.0-4.8); LYMPHOCYTES PERCENT AUTO 26.4 % (24.0-44.0); MEAN CORPUSCULAR HEMOGLOBIN 30.6 pg (28.0-32.0); MEAN CORPUSCULAR HGB CONC 34.4 g/dl (32.0-36.0); MEAN PLATELET VOLUME 9.3 fl (9.4-12.4); MONOCYTES ABSOLUTE AUTO 0.3 K/mm3 (0.0-0.8); MONOCYTES PERCENT AUTO 8.6 % (0.0-8.0); NEUTROPHILS ABSOLUTE AUTO 2.1 K/mm3 (1.8-7.7); NEUTROPHILS PERCENT AUTO 61.5 % (41.0-71.0); PLATELET COUNT,PLT 119 K/mm3 (150-400); RED BLOOD CELL COUNT 3.72 M/mm3 (4.52-5.90); WHITE BLOOD CELL COUNT,WBC 3.48 K/mm3 (3.9-11.3)
[2024-02-10 02:32] LABS: A/G RATIO 1.2 (1-2); ALBUMIN 3.6 g/dl (3.4-5.0); ANION GAP 9.6 (5-15); BILIRUBIN TOTAL 0.5 mg/dL (0.2-1.0); BUN/CREATININE RATIO 12.9 (14-18); CALCIUM 9.1 mg/dL (8.5-10.1); CREATININE 1.4 mg/dL (0.7-1.3); EST CRCL DRUG DOSING (CG) 35.77 mL/min; MAGNESIUM 1.6 mg/dL (1.8-2.4); POTASSIUM,K 3.6 mEq/L (3.5-5.1); PROTEIN TOTAL,TP 6.7 g/dl (6.4-8.2)
[2024-02-10 03:18] LABS: APPEARANCE,URINE CLEAR (Clear); BILIRUBIN,URINE NEGATIVE (Negative); COLOR,URINE YELLOW (Yellow); GLUCOSE,URINE NEGATIVE (Negative); KETONES,URINE NEGATIVE (Negative); LEUKOCYTE ESTERASE,URINE TRACE (Negative); NITRITE,URINE NEGATIVE (Negative); OCCULT BLOOD,URINE TRACE-LYSED (Negative); PROTEIN,URINE NEGATIVE (Negative); UROBILINOGEN,URINE 0.2 (0.2-1.0)
[2024-02-10] MEDS: Iopamidol 612 MG/ML 100 ML Bottle IVPUSH ONE (03:30)
[2024-02-10 03:34] LABS: BACTERIA,URINE RARE /hpf (FEW); EPITHELIAL CELLS,URINE 0-5 /hpf (0-5); RBC,URINE 0-5 /hpf (0-5); WBC,URINE 0-5 /hpf (0-5)
[2024-02-10 03:35] LABS: HYALINE CASTS,URINE 0-5 /lpf (0-5); MUCUS,URINE MANY /hpf (FEW)
[2024-02-10] MEDS ORDERED: Naloxone 0.4 MG/ML SDV IVPUSH PRN (04:37)
[2024-02-10] MEDS: HYDROmorphone 0.5 MG/0.5 ML Syringe IVPUSH ONE ×2 (04:43→08:08)
[2024-02-10] MEDS ORDERED: valACYclovir 1,000 MG Tab PO ONE (08:04)
[2024-02-10 08:26] VITALS: BP 145/92; PULSE 66
== END 2024-02-10 08:26 | disposition home or self-care (01) ==
LOC: JD.ED 01:10
DX: B02.9 Zoster without complications (principal); I25.10 Atherosclerotic heart disease of native coronary artery without angina pectoris; K21.9 Gastro-esophageal reflux disease without esophagitis; I25.2 Old myocardial infarction; Z86.16 Personal history of COVID-19; Z95.5 Presence of coronary angioplasty implant and graft; Z79.82 Long term (current) use of aspirin; Z79.899 Other long term (current) drug therapy
CPT/HCPCS: 36415; 71045; 74177; 76705; 80053; 81001; 83690; 83735; 84484; 85025; 87086; 93005; 96374; 96376; 99284; J1171; Q9967

== ENCOUNTER 2024-03-21 05:17 | Emergency (ER) | payer MEDICARE, OTHER ==
[2024-03-21] MEDS: Acetaminophen 325 MG Tab PO ONE (05:58)
[2024-03-21 06:09] LABS: APPEARANCE,URINE CLEAR (Clear); BILIRUBIN,URINE NEGATIVE (Negative); COLOR,URINE YELLOW (Yellow); GLUCOSE,URINE NEGATIVE (Negative); KETONES,URINE NEGATIVE (Negative); LEUKOCYTE ESTERASE,URINE NEGATIVE (Negative); NITRITE,URINE NEGATIVE (Negative); OCCULT BLOOD,URINE TRACE-INTACT (Negative); PH,URINE 6.5 (5.0-8.0); PROTEIN,URINE NEGATIVE (Negative); UROBILINOGEN,URINE 0.2 (0.2-1.0)
[2024-03-21 06:17] LABS: BASOPHILS PERCENT AUTO 0.2 % (0.0-1.0); EOSINOPHILS ABSOLUTE AUTO 0.1 K/mm3 (0.0-0.4); EOSINOPHILS PERCENT AUTO 1.8 % (0.0-6.0); HEMATOCRIT 35.3 % (42.0-52.0); HEMOGLOBIN 12.1 gm/dl (14.0-18.0); IMMATURE GRAN ABSOLUTE AUTO 0.03 K/mm3 (0.00-0.05); IMMATURE GRAN PERCENT AUTO 0.7 % (0.0-0.4); LYMPHOCYTES ABSOLUTE AUTO 0.6 K/mm3 (1.0-4.8); LYMPHOCYTES PERCENT AUTO 13.9 % (24.0-44.0); MEAN CORPUSCULAR HEMOGLOBIN 30.9 pg (28.0-32.0); MEAN CORPUSCULAR HGB CONC 34.3 g/dl (32.0-36.0); MEAN CORPUSCULAR VOLUME 90.1 fl (83.0-99.0); MEAN PLATELET VOLUME 9.3 fl (9.4-12.4); MONOCYTES ABSOLUTE AUTO 0.3 K/mm3 (0.0-0.8); NEUTROPHILS ABSOLUTE AUTO 3.5 K/mm3 (1.8-7.7); NEUTROPHILS PERCENT AUTO 77.4 % (41.0-71.0); PLATELET COUNT,PLT 162 K/mm3 (150-400); RED BLOOD CELL COUNT 3.92 M/mm3 (4.52-5.90); WHITE BLOOD CELL COUNT,WBC 4.53 K/mm3 (3.9-11.3)
[2024-03-21 06:21] LABS: BACTERIA,URINE FEW /hpf (FEW); EPITHELIAL CELLS,URINE 0-5 /hpf (0-5); MUCUS,URINE FEW /hpf (FEW); WBC,URINE 0-5 /hpf (0-5)
[2024-03-21 06:42] LABS: ALBUMIN 3.6 g/dl (3.4-5.0); ANION GAP 14.3 (5-15); BILIRUBIN TOTAL 0.6 mg/dL (0.2-1.0); CALCIUM 9.3 mg/dL (8.5-10.1); CREATININE 1.2 mg/dL (0.7-1.3); EST CRCL DRUG DOSING (CG) 41.73 mL/min; POTASSIUM,K 4.3 mEq/L (3.5-5.1); PROTEIN TOTAL,TP 7.3 g/dl (6.4-8.2)
[2024-03-21 07:53] VITALS: BP 131/81; PULSE 67
== END 2024-03-21 07:51 | disposition home or self-care (01) ==
LOC: JD.ED 05:17
DX: M54.50 Low back pain, unspecified (principal); R33.9 Retention of urine, unspecified; I10 Essential (primary) hypertension; I25.2 Old myocardial infarction; I25.10 Atherosclerotic heart disease of native coronary artery without angina pectoris; K21.9 Gastro-esophageal reflux disease without esophagitis; E78.00 Pure hypercholesterolemia, unspecified; Z79.82 Long term (current) use of aspirin; Z79.899 Other long term (current) drug therapy; Z86.16 Personal history of COVID-19
CPT/HCPCS: 36415; 51798; 72131; 80053; 81001; 85025; 99284; A9270; 99283